=== PATIENT | female | born 1985 | race Caucasian/White ===

== ENCOUNTER 2021-03-14 16:22 | Observation (INO) | payer SELFPAY ==
[~2021-03-14] VITALS: Ht 167.6 cm; Wt 72.1 kg
[~2021-03-14 16:22] MED LIST: COLACE 100MG C100 MG PO
[2021-03-14] MEDS ORDERED: SYNTHROID75 MCG PO (18:36)
--- NOTE | 2021-03-14 23:30 | NUR ---
PATIENT IS PAYING OUT OF POCKET FOR HOSPITAL STAY. IT WAS BROUGHT TO MY ATTENTION THAT AFTER SURGERY, SHE MIGHT WANT TO GO HOME. DR. HAHN SAID IT WAS OKAY FOR HER TO GO HOME TONIGHT LONG SHE WAS STABLE. PATIENT AND FAMILY DECIDED TO STAY FOR THE NIGHT. DIRECTOR OF GRADUATE MEDICAL EDUCATION ALYSHA VIVAS NOTIFIED.
[2021-03-15] MEDS ORDERED: COLACE100 MG PO (12:26)
[2021-03-15] MEDS ORDERED: IBUPROFEN800 MG PO (12:26)
[2021-03-15] MEDS ORDERED: PYRIDIUM100 MG PO (12:26)
[2021-03-15] MEDS ORDERED: PERCOCET 5/325 T1 EA PO (12:26)
== END 2021-03-15 14:18 | disposition home or self-care (01) ==
LOC: OR 16:22 → M/S 16:33
PROVIDERS: ADMIT Obstetrics & Gynecology
DX: O00.80 Other ectopic pregnancy without intrauterine pregnancy (principal); O99.281 Endocrine, nutritional and metabolic diseases complicating pregnancy, first trimester; O99.341 Other mental disorders complicating pregnancy, first trimester; Z3A.01 Less than 8 weeks gestation of pregnancy; Z20.822 Contact with and (suspected) exposure to COVID-19
CPT/HCPCS: G0378; G0379; J0690; J1100; J2001; J2250; J2405; J2704; J2710; J3010; J7120; U0002

== ENCOUNTER 2022-04-23 05:49 | Inpatient (IN) | payer SELFPAY ==
[~2022-04-23] VITALS: Ht 180.3 cm; Wt 83.0 kg
[~2022-04-23 05:49] MED LIST changes: +COLACE100 MG PO; +IBUPROFEN800 MG PO; +PERCOCET 5/325 T1 EA PO; +PYRIDIUM100 MG PO; +SYNTHROID75 MCG PO
[2022-04-23 12:53] LABS: HEMOGLOBIN 12.5 gm/dl (12.3-15.3); RED BLOOD COUNT 3.97 M/UL (4.00-5.10)
[2022-04-23] MEDS ORDERED: EFFEXOR 25 MG T25 MG PO (13:24)
[2022-04-23 16:56] LABS: RED BLOOD COUNT 3.83 M/UL (4.00-5.10); WHITE BLOOD COUNT 13.1 K/UL (4.5-11.0)
[2022-04-23 17:29] LABS: BUN/CREATININE RATIO 18 (0-10)
[2022-04-23] MEDS ORDERED: IBUPROFEN800 MG PO (21:25)
[2022-04-23] MEDS ORDERED: HEMOCYTE324 MG PO (21:25)
[2022-04-23] MEDS ORDERED: COLACE100 MG PO (21:25)
[2022-04-24 04:02] LABS: HEMOGLOBIN 13.1 gm/dl (12.3-15.3)
== END 2022-04-25 14:48 | disposition home or self-care (01) | DRG 806 ==
LOC: GENOP 05:49 → OB 12:16
PROVIDERS: Obstetrics & Gynecology; ADMIT Obstetrics & Gynecology
PROC: 10E0XZZ Delivery of Products of Conception, External Approach (ICD-10-PCS; principal; 2022-04-23)
PROC: 4A1HXCZ Monitoring of Products of Conception, Cardiac Rate, External Approach (ICD-10-PCS; 2022-04-23)
PROC: 3E0234Z Introduction of Serum, Toxoid and Vaccine into Muscle, Percutaneous Approach (ICD-10-PCS; 2022-04-23)
DX: O99.02 Anemia complicating childbirth (principal); I47.1 Supraventricular tachycardia; Z37.0 Single live birth; O99.43 Diseases of the circulatory system complicating the puerperium; D64.9 Anemia, unspecified; Z3A.36 36 weeks gestation of pregnancy; Z20.822 Contact with and (suspected) exposure to COVID-19; F32.A Depression, unspecified; O99.344 Other mental disorders complicating childbirth; O99.284 Endocrine, nutritional and metabolic diseases complicating childbirth; E03.9 Hypothyroidism, unspecified; O76 Abnormality in fetal heart rate and rhythm complicating labor and delivery; F41.9 Anxiety disorder, unspecified; Z98.890 Other specified postprocedural states; Z28.310 Unvaccinated for COVID-19; Z80.3 Family history of malignant neoplasm of breast; Z82.49 Family history of ischemic heart disease and other diseases of the circulatory system; Z82.0 Family history of epilepsy and other diseases of the nervous system; Z83.49 Family history of other endocrine, nutritional and metabolic diseases; Z81.8 Family history of other mental and behavioral disorders; Z23 Encounter for immunization
CPT/HCPCS: 36415; 80053; 81001; 82962; 83615; 84550; 85014; 85018; 85025; 90715; 93005; J2590; Q0177